=== PATIENT | female | born 1995 | race Caucasian/White ===

== ENCOUNTER 2016-12-15 08:11 | Emergency (ER) | payer OTHER ==
[2016-12-15 08:30] VITALS: BP 117/59
--- NOTE | 2016-12-15 08:50 | UC ---
Complaint Female HPI - HPI Summary HPI Summary: DYSURIA X 2 DAYS + FREQUENCY , URGENCY NO FEVER, NO CHILLS, NO FLANK PAIN - History Of Current Complaint Chief Complaint: UCGU Stated Complaint: URINARY COMPLAINT Time Seen by Provider: 12/15/16 08:19 Hx Obtained From: Patient Hx Last Menstrual Period: 11/29/16 ?: No Onset/Duration: Gradual Onset, Lasting Days - 2, Still Present Timing: Constant Severity Initially: Moderate Severity Currently: Moderate Character: Burning Aggravating Factor(s): Nothing Alleviating Factor(s): Nothing Associated Signs And Symptoms: Negative: Fever, Back Pain, Vaginal Bleeding/ Discharge, Vaginal Discharge, Nausea, Vomiting(# Of Episodes =), Genital Swelling, Genital Blisters, Retained Foregin Body (Specify) Related Hx: Similar Episode/Dx as: - UTI - Allergies/Home Medications Allergies/Adverse Reactions: Allergies Allergy/AdvReac Type Severity Reaction Status Date / Time No Known Allergies Allergy Verified 12/15/16 08:30 PMH/Surg Hx/FS Hx/Imm Hx Previously Healthy: Yes - Surgical History Surgical History: Yes Surgery Procedure, Year, and Place: wisdom teeth - Family History Known Family History: Negative: Renal Disease - Social History Alcohol Use: Occasionally Substance Use Type: None Smoking Status (MU): Never Smoked Tobacco - Immunization History Most Recent Influenza Vaccination: none Review of Systems Constitutional: Negative Skin: Negative Eyes: Negative ENT: Negative Respiratory: Negative Genitourinary: Dysuria, Frequency All Other Systems Reviewed And Are Negative: Yes Physical Exam Triage Information Reviewed: Yes Appearance: Well-Appearing, No Pain Distress, Well-Nourished Vital Signs: Initial Vital Signs Temp 98.6 F 12/15/16 08:26 Pulse 69 12/15/16 08:26 Resp 16 12/15/16 08:26 BP 117/59 12/15/16 08:26 Pulse Ox 100 12/15/16 08:26 Vital Signs Reviewed: Yes Eye Exam: Normal Eyes: Positive: Conjunctiva Clear ENT: Positive: Normal ENT inspection, Hearing grossly normal, Pharynx normal Neck: Positive: Supple, Nontender, No Lymphadenopathy Respiratory: Positive: Chest non-tender, Lungs clear, Normal breath sounds Cardiovascular: Positive: RRR, No Murmur, Pulses Normal Abdominal Exam: Normal Abdomen Description: Positive: Nontender, Soft. Negative: CVA Tenderness (R), CVA Tenderness (L), Distended, Guarding Bowel Sounds: Positive: Present Complaint Female Dx - Differential Dx/Diagnosis Provider Diagnoses: UTI Discharge - Discharge Plan Condition: Stable Disposition: HOME Prescriptions: Sulfamethox/Trimethoprim DS* [Bactrim DS 800/160 TAB*] 1 tab PO BID #14 tab Patient Education Materials: Urinary Tract Infection in Women (ED) Referrals: David Horton MD [Primary Care Provider] - 7 Days
== END 2016-12-15 08:57 | disposition home or self-care (01) ==
LOC: UCCORT 08:11
DX: N39.0 Urinary tract infection, site not specified (principal)
CPT/HCPCS: 81003; 87086; 99212; G0463

== ENCOUNTER 2017-03-10 08:10 | Emergency (ER) | payer OTHER ==
[2017-03-10 08:22] VITALS: BP 123/66
--- NOTE | 2017-03-10 08:29 | UC ---
Eye Complaint HPI - HPI Summary HPI Summary: The patient comes in today for: 1. "I think I have pink eye": Onset: 12 hours ago. Palliative/provocative: Nothing makes her symptoms better or worse. Quality: Itchy Region: Left eye Severity: 5/10 Time: Constant. Associated symptoms: Discharge: Green/yellow material only when she woke up. Vision: No change. * - History of Current Complaint Chief Complaint: UCEye Stated Complaint: EYE COMPLAINT Time Seen by Provider: 03/10/17 08:21 Hx Obtained From: Patient Hx Last Menstrual Period: ~02/17/17 - Allergies/Home Medications Allergies/Adverse Reactions: Allergies Allergy/AdvReac Type Severity Reaction Status Date / Time No Known Allergies Allergy Verified 03/10/17 08:15 Home Medications: Home Medications Control Pill 1 tab PO DAILY 03/10/17 [History] PMH/Surg Hx/FS Hx/Imm Hx Previously Healthy: No - Family planning/BCP - Surgical History Surgical History: Yes Surgery Procedure, Year, and Place: wisdom teeth - Family History Known Family History: Positive: Hypertension, Diabetes Negative: Renal Disease - Social History Occupation: Employed Full-time Alcohol Use: Rare Substance Use Type: None Smoking Status (MU): Never Smoked Tobacco - Immunization History Most Recent Influenza Vaccination: Not the 2015/2016 Season Review of Systems Constitutional: Negative Skin: Negative Eyes: Drainage ENT: Negative, Other - Itchy nose and clear rhinitis Respiratory: Negative Cardiovascular: Negative Gastrointestinal: Negative Genitourinary: Negative All Other Systems Reviewed And Are Negative: Yes Physical Exam Triage Information Reviewed: Yes Appearance: Well-Appearing, No Pain Distress, Well-Nourished Vital Signs: Initial Vital Signs Temp 98.7 F 03/10/17 08:14 Pulse 90 03/10/17 08:14 Resp 16 03/10/17 08:14 BP 123/66 03/10/17 08:14 Pulse Ox 100 03/10/17 08:14 Vital Signs Reviewed: Yes Eyes: Positive: Conjunctiva Clear - On the right, Conjunctiva Inflamed - On the left with yellow crusting around the eye lashes.. Negative: Discharge ENT: Positive: Hearing grossly normal. Negative: Pharyngeal erythema, Nasal congestion, TM bulging, TM dull, TM red, Tonsillar swelling, Tonsillar exudate Dental: Negative: Gross Decay/Caries @, Dental Fracture @ Neck: Positive: Supple, Nontender, No Lymphadenopathy. Negative: Nuchal Rigidity Respiratory: Positive: Lungs clear, No respiratory distress, No accessory muscle use. Negative: Crackles, Wheezing Cardiovascular: Positive: RRR, No Murmur Abdomen Description: Positive: Nontender, No Organomegaly, Soft. Negative: Distended, Guarding Musculoskeletal: Positive: Strength Intact, ROM Intact Neurological: Positive: Alert, Muscle Tone Normal Psychological: Positive: Age Appropriate Behavior, Consolable Skin: Negative: rashes, breakdown Eye Complaint Course/Dx - Course Course Of Treatment: Patient was told that I think she has both allergic conjunctivitis and left bacterial conjunctivitis. She was encouraged to use [id number] antihistamine eye drops. - Differential Dx/Diagnosis Differential Diagnosis/HQI/PQRI: Conjunctivitis, Keratitis Provider Diagnoses: Left bacterial conjunctivitis. Allergic bilateral conjunctivitis Discharge - Discharge Plan Condition: Stable Disposition: HOME Patient Education Materials: Conjunctivitis (ED) Referrals: No Primary Care Phys,NOPCP [Primary Care Provider] - 1 Week (Please see your primary care provider in about a week. If you don't have a primary care provider, please reference the included sheet of local provider. If you get worse, please be seen sooner.)
== END 2017-03-10 08:45 | disposition home or self-care (01) ==
LOC: UCCORT 08:10
DX: H10.89 Other conjunctivitis (principal); H10.13 Acute atopic conjunctivitis, bilateral
CPT/HCPCS: 99212; G0463

== ENCOUNTER 2018-09-15 14:46 | Emergency (ER) | payer OTHER ==
[2018-09-15 15:01] VITALS: BP 142/86
--- NOTE | 2018-09-15 15:36 | UC ---
Complaint Female HPI - HPI Summary HPI Summary: PATIENT COMPLAINS OF ABOUT 10 DAYS OF DYSURIA, URINARY FREQUENCY AND URGENCY. STATES SHE HAS A HISTORY OF FREQUENT/RECURRENT UTI EVER SINCE SHE WAS CHILD. HAS NEVER HAD SPECIALIST EVALUATION. NO FEVER OR NAUSEA/VOMITING. DOES HAVE SOME MILD LOW BACK PAIN. REPORTS SHE IS SEXUALLY ACTIVE WITH 1 MALE PARTNER FOR THE PAST 2-3 MONTHS. SHE USES BARRIER METHODS OF CONTRACEPTION INTERMITTENTLY. IS ALSO REQUESTING STD TESTING. SHE DENIES ANY ABDOMINAL PAIN. STATES SHE HAS SOME VAGINAL DISCHARGE DESCRIBED SOMETIMES WHITE AND SOMETIMES GREENISH/YELLOW. NO FOUL ODOR OR VAGINAL IRRITATION. - History Of Current Complaint Chief Complaint: UCGU Stated Complaint: URINARY COMPLAINT Time Seen by Provider: 09/15/18 15:07 Hx Obtained From: Patient Hx Last Menstrual Period: 08/27/18 Onset/Duration: Gradual Onset, Lasting Days, Still Present Timing: Constant Severity Initially: Mild Severity Currently: Mild Pain Intensity: 2 Pain Scale Used: 0-10 Numeric Character: Burning Aggravating Factor(s): Urination Alleviating Factor(s): Nothing Associated Signs And Symptoms: Positive: Back Pain, Vaginal Discharge. Negative : Fever, Nausea, Vomiting(# Of Episodes =) - Allergies/Home Medications Allergies/Adverse Reactions: Allergies Allergy/AdvReac Type Severity Reaction Status Date / Time No Known Allergies Allergy Verified 09/15/18 14:56 PMH/Surg Hx/FS Hx/Imm Hx Previously Healthy: Yes - Surgical History Surgical History: Yes Surgery Procedure, Year, and Place: wisdom teeth - Family History Known Family History: Positive: Hypertension, Diabetes Negative: Renal Disease - Social History Alcohol Use: Rare Substance Use Type: None Smoking Status (MU): Never Smoked Tobacco - Immunization History Most Recent Influenza Vaccination: Not the 2015/2016 Season Review of Systems All Other Systems Reviewed And Are Negative: Yes Constitutional: Positive: Negative Respiratory: Positive: Negative Cardiovascular: Positive: Negative Gastrointestinal: Positive: Negative Genitourinary: Positive: Dysuria, Frequency, Urgency Physical Exam Triage Information Reviewed: Yes Appearance: Well-Appearing, No Pain Distress, Well-Nourished Vital Signs: Initial Vital Signs Temp 98.5 F 09/15/18 14:57 Pulse 81 09/15/18 14:57 Resp 14 09/15/18 14:57 BP 142/86 09/15/18 14:57 Pulse Ox 100 12/15/18 14:57 Laboratory Tests 09/15/18 15:14 POC Urine Color Yellow POC Urine Clarity Clear POC Urine pH 7.0 POC Ur Specif Gordon 1.020 POC Urine Protein Negative POC Ur Glucose (UA) Negative POC Urine Ketones Negative POC Urine Blood Negative POC Urine Nitrite Negative POC Urine Bilirubin Negative POC Urine Urobilinogen 0.2 POC U Leukocyte Esteras Trace A Vital Signs Reviewed: Yes Eyes: Positive: Conjunctiva Clear ENT: Positive: Hearing grossly normal Neck: Positive: Supple Respiratory: Positive: No respiratory distress, No accessory muscle use Cardiovascular: Positive: Pulses Normal Abdomen Description: Positive: Soft. Negative: Nontender, CVA Tenderness (R), CVA Tenderness (L), Distended, Guarding Musculoskeletal: Positive: No Edema Neurological: Positive: Alert Psychological: Positive: Age Appropriate Behavior Skin: Negative: Rashes Complaint Female Dx - Course Course Of Treatment: WILL TREAT PATIENT FOR UTI DESPITE NONSPECIFIC UA GIVEN HER SYMPTOMS AND HISTORY OF RECURRENT UTI. I STRONGLY ENCOURAGED PATIENT TO FOLLOW-UP WITH A UROLOGIST FOR FURTHER EVALUATION. SHE IS ALSO COMPLAINING OF SOME INTERMITTENT VAGINAL DISCHARGE THAT IS GREENISH/YELLOW. SHE DENIES ANY IRRITATION/DISCOMFORT OR FOUL ODOR BUT DOES HAVE HISTORY OF UNPROTECTED SEX IN THE PAST COUPLE OF MONTHS. WILL TEST FOR ALL STDS AND ALSO SWAB FOR VAGINITIS. PATIENT ENCOURAGED TO FIND A PCP. - Differential Dx/Diagnosis Provider Diagnosis: Dysuria, Screen for STD (sexually transmitted disease) Discharge - Sign-Out/Discharge Documenting (check all that apply): Patient Departure All imaging exams completed and their final reports reviewed: No Studies - Discharge Plan Condition: Stable Disposition: HOME Prescriptions: Sulfamethox/Trimethoprim DS* [Bactrim DS 800/160 TAB*] 1 tab PO BID #10 tab Patient Education Materials: Sexually Transmitted Diseases (ED), Dysuria (ED) Referrals: No Primary Care Phys,NOPCP [Primary Care Provider] - Additional Instructions: YOUR URINE DOES NOT CLEARLY SHOW A UTI BUT GIVEN YOUR SYMPTOMS WILL COVER WITH ANTIBIOTICS FOR 3 DAYS. YOUR URINE WILL BE SENT FOR TESTING. I RECOMMEND YOU FOLLOW-UP WITH A UROLOGIST FOR FURTHER EVALUATION OF YOUR RECURRENT/FREQUENT UTI SYMPTOMS. STD TESTING ALSO DONE TODAY - HIV, SYPHILIS, GONORRHEA, CHLAMYDIA, VAGINITIS. WE WILL CALL YOU WITH ANY ABNORMAL RESULTS. BE SURE TO PRACTICE SAFER SEX - USE A BARRIER METHOD OF CONTRACEPTION EVERY TIME. LIST OF PCPs AND SPECIALISTS PROVIDED FOR YOUR REFERENCE. - Billing Disposition and Condition Condition: STABLE Disposition: Home
== END 2018-09-15 15:54 | disposition home or self-care (01) ==
LOC: UCCORT 14:46
DX: R30.0 Dysuria (principal); Z11.3 Encounter for screening for infections with a predominantly sexual mode of transmission
CPT/HCPCS: 36415; 81003; 86592; 86703; 87086; 87480; 87491; 87510; 87591; 87660; 87798; 99212; G0463

== ENCOUNTER 2018-11-04 07:01 | Emergency (ER) | payer OTHER ==
[2018-11-04 07:19] VITALS: BP 126/76
--- NOTE | 2018-11-04 07:40 | UC ---
Complaint Female HPI - HPI Summary HPI Summary: dysuria starting this morning without vomiting, flank pain, fever. She gets about 4 uti per year since childhood. No prior workup. She was given name of urologist to f/u with last visit but did not go yet. - History Of Current Complaint Chief Complaint: UCGU Stated Complaint: URINARY Time Seen by Provider: 11/04/18 07:30 Hx Obtained From: Patient Hx Last Menstrual Period: 10/21/18 Onset/Duration: Gradual Onset, Lasting Hours Timing: Constant Severity Initially: Moderate Severity Currently: Moderate Pain Intensity: 0 Character: Burning Aggravating Factor(s): Urination Alleviating Factor(s): Nothing Associated Signs And Symptoms: Negative: Fever, Back Pain, Vaginal Bleeding/ Discharge, Vaginal Discharge, Nausea, Vomiting(# Of Episodes =), Genital Swelling, Genital Blisters Related Hx: Similar Episode/Dx as: - prior uti. - Allergies/Home Medications Allergies/Adverse Reactions: Allergies Allergy/AdvReac Type Severity Reaction Status Date / Time No Known Allergies Allergy Verified 11/04/18 07:16 PMH/Surg Hx/FS Hx/Imm Hx Previously Healthy: No - uti 4x/yr. - Surgical History Surgical History: Yes Surgery Procedure, Year, and Place: wisdom teeth - Family History Known Family History: Positive: Hypertension, Diabetes Negative: Renal Disease - Social History Alcohol Use: Occasionally Substance Use Type: None Smoking Status (MU): Never Smoked Tobacco - Immunization History Most Recent Influenza Vaccination: Not the 2015/2016 Season Review of Systems All Other Systems Reviewed And Are Negative: Yes Genitourinary: Positive: Dysuria Physical Exam Triage Information Reviewed: Yes Appearance: Well-Appearing, No Pain Distress, Well-Nourished Vital Signs: Initial Vital Signs Temp 97.4 F 11/04/18 07:16 Pulse 77 11/04/18 07:16 Resp 16 11/04/18 07:16 BP 126/76 11/04/18 07:16 Pulse Ox 100 11/04/18 07:16 Vital Signs Reviewed: Yes Eyes: Positive: Conjunctiva Clear ENT: Positive: Normal ENT inspection Neck: Positive: Supple, Nontender. Negative: No Lymphadenopathy Respiratory: Positive: Lungs clear, Normal breath sounds, No respiratory distress, No accessory muscle use Cardiovascular: Positive: No Murmur Abdomen Description: Positive: Nontender, No Organomegaly. Negative: CVA Tenderness (R), CVA Tenderness (L) Musculoskeletal: Positive: Strength Intact, ROM Intact, No Edema Neurological: Positive: Alert, Muscle Tone Normal. Negative: Fatigued Psychological: Positive: Age Appropriate Behavior Skin: Negative: Rashes Complaint Female Dx - Differential Dx/Diagnosis Provider Diagnosis: UTI (urinary tract infection) Discharge - Sign-Out/Discharge Documenting (check all that apply): Patient Departure All imaging exams completed and their final reports reviewed: No Studies - Discharge Plan Condition: Good Disposition: HOME Prescriptions: Nitrofurantoin Monohyd/M-Cryst [Macrobid 100 mg Capsule] 100 mg PO BID #14 cap Patient Education Materials: Urinary Tract Infection in Women (DC) Referrals: No Primary Care Phys,NOPCP [Primary Care Provider] - Zackery Marcano MD [Medical Doctor] - - Billing Disposition and Condition Condition: GOOD Disposition: Home
== END 2018-11-04 07:41 | disposition home or self-care (01) ==
LOC: UCCORT 07:01
DX: N39.0 Urinary tract infection, site not specified (principal); R11.0 Nausea
CPT/HCPCS: 81003; 87077; 87086; 87186; 99212; G0463

== ENCOUNTER 2019-04-09 09:32 | Emergency (ER) | payer OTHER ==
[2019-04-09 09:48] VITALS: BP 114/69
--- NOTE | 2019-04-09 10:04 | UC ---
Abdominal Pain Female HPI - HPI Summary HPI Summary: 23 yo female presents with diarrhea since yesterday. She tells me that yesterday she developed some generalized abdominal cramping and has had 10-20 instances of watery diarrhea since midday yesterday. She recalls eating meat that was frozen since January and thinks she may have food poisoning. She has had no abdominal surgeries. No recent antibiotics. She is able to drink fluids and has had some toast this morning. She denies fever, chills, n/v, dysuria. - History of Current Complaint Chief Complaint: UCAbdominalPain Stated Complaint: ABDOMINAL PAIN Time Seen by Provider: 04/09/19 10:04 Hx Obtained From: Patient Hx Last Menstrual Period: 04/06/18 Onset/Duration: Sudden Onset Severity Initially: Mild Severity Currently: Mild Pain Intensity: 2 Pain Scale Used: 0-10 Numeric Allergies/Adverse Reactions: Allergies Allergy/AdvReac Type Severity Reaction Status Date / Time No Known Allergies Allergy Verified 04/09/19 09:48 PMH/Surg Hx/FS Hx/Imm Hx - Additional Past Medical History Additional PMH: None - Surgical History Surgical History: Yes Surgery Procedure, Year, and Place: wisdom teeth - Family History Known Family History: Positive: Hypertension, Diabetes Negative: Renal Disease - Social History Occupation: Employed Part-time Lives: With Family Alcohol Use: Occasionally Substance Use Type: None Smoking Status (MU): Never Smoked Tobacco - Immunization History Most Recent Influenza Vaccination: Not the 2016/2016 Season Review of Systems All Other Systems Reviewed And Are Negative: Yes Constitutional: Positive: Negative Skin: Positive: Negative Respiratory: Positive: Negative Cardiovascular: Positive: Negative Gastrointestinal: Positive: Abdominal Pain, Diarrhea Genitourinary: Positive: Negative Neurovascular: Positive: Negative Neurological: Positive: Negative Psychological: Positive: Negative Physical Exam - Summary Physical Exam Summary: GENERAL: NAD. WDWN. No pain distress. SKIN: No rashes, sores, lesions, or open wounds. NECK: Supple. Nontender. No lymphadenopathy. CHEST: CTAB. No r/r/w. No accessory muscle use. Breathing comfortably and in no distress. CV: RRR. Without m/r/g. Pulses intact. Cap refill <2seconds ABDOMEN: Generalized mild TTP. Soft. No distention or guarding. No CVA tenderness. Bowel sounds present. No mcburnery point tenderness. NEURO: Alert. PSYCH: Age appropriate behavior. Triage Information Reviewed: Yes Vital Signs: Initial Vital Signs Temp 98.3 F 04/09/19 09:42 Pulse 73 04/09/19 09:42 Resp 16 04/09/19 09:42 BP 114/69 04/09/19 09:42 Pulse Ox 100 04/09/19 09:42 Vital Signs Reviewed: Yes Abd Pain Female Course/Dx - Course Course Of Treatment: Suspect viral diarrhea. She is able to tolerate po well and has no signs of appendicitis or underlying infection at this point. We discussed obtaining stool cultures, but pt prefers to wait to see if her symptoms improve within the next 2 days and, if not, will complete the stool cultures. Advised to drink plenty of fluids and adhere to a BRAT diet and advance diet as tolerated. - Differential Dx/Diagnosis Provider Diagnosis: Diarrhea Discharge - Sign-Out/Discharge Documenting (check all that apply): Patient Departure All imaging exams completed and their final reports reviewed: No Studies - Discharge Plan Condition: Stable Disposition: HOME Patient Education Materials: Acute Diarrhea (ED) Forms: *Work Release Referrals: No Primary Care Phys,NOPCP [Primary Care Provider] - Additional Instructions: If you develop a fever, shortness of breath, chest pain, new or worsening symptoms - please call your PCP or go to the ED immediately. 1) Continue to drink plenty of clear fluids and adhere to a BRAT diet of bananas , rice, applesauce, and toast. 2) If your diarrhea does not resolve in 2-3 days, please be rechecked - Billing Disposition and Condition Condition: STABLE Disposition: Home
== END 2019-04-09 10:18 | disposition home or self-care (01) ==
LOC: UCCORT 09:32
DX: R19.7 Diarrhea, unspecified (principal); R10.84 Generalized abdominal pain
CPT/HCPCS: 99211; G0463

== ENCOUNTER 2019-11-07 10:34 | Emergency (ER) | payer OTHER ==
[2019-11-07 11:26] VITALS: BP 117/68
--- NOTE | 2019-11-07 12:03 | UC ---
Throat Pain/Nasal Abdelrahman HPI - HPI Summary HPI Summary: 24 y/o female presents to the urgent care c/o sore throat, low grade fever, chills, fatigue and body aches for the past 2 days. Fever of 101F yesterday, but has not taken anything to alleviate symptoms. She is concerned w/ influenza since many co-worker have cold symptoms. Pain w/ swallowing is 5/10. She has been drinking fluids and eating well. Pt denies SOB, wheezing, dizziness , chest pain, abdominal pain, N/V/D. - History of Current Complaint Chief Complaint: UCRespiratory Stated Complaint: ST Time Seen by Provider: 11/07/19 11:59 Hx Obtained From: Patient Hx Last Menstrual Period: 10/13/2019 Onset/Duration: Gradual Onset, Lasting Days - 2 days, Still Present, Worse Since - today w/ chills and low grade fever and body aches Severity: Moderate Pain Intensity: 5 - sore throat Pain Scale Used: 0-10 Numeric Cough: Nonproductive Associated Signs & Symptoms: Positive: Nasal Discharge - clear, Fever. Negative : Dysphagia, Wheezing, Sinus Discomfort, Vomiting - Epiglottits Risk Factors Epiglottis Risk Factors: Negative - Allergies/Home Medications Allergies/Adverse Reactions: Allergies Allergy/AdvReac Type Severity Reaction Status Date / Time No Known Allergies Allergy Verified 11/07/19 11:22 PMH/Surg Hx/FS Hx/Imm Hx Previously Healthy: Yes - Pt denies PMHX - Surgical History Surgical History: Yes Surgery Procedure, Year, and Place: wisdom teeth - Family History Known Family History: Positive: Hypertension, Diabetes Negative: Renal Disease - Social History Alcohol Use: Occasionally Substance Use Type: None Smoking Status (MU): Never Smoked Tobacco - Immunization History Most Recent Influenza Vaccination: Not the 2016/2016 Season Review of Systems All Other Systems Reviewed And Are Negative: Yes Constitutional: Positive: Fever, Chills, Fatigue Eyes: Positive: Negative ENT: Positive: Sore Throat, Nasal Discharge - clear Respiratory: Positive: Cough Cardiovascular: Positive: Negative Gastrointestinal: Positive: Negative Genitourinary: Positive: Negative Motor: Positive: Negative Neurovascular: Positive: Negative Musculoskeletal: Positive: Myalgia Neurological: Positive: Headache Psychological: Positive: Negative Is Patient Immunocompromised?: No Physical Exam - Summary Physical Exam Summary: VITAL SIGNS: Reviewed. GENERAL: Patient is a well developed and nourished female who is sitting comfortably in the examining table. Patient is not in any acute respiratory distress. HEAD AND FACE: No signs of trauma. No ecchymosis, hematomas or skull depressions. No sinus tenderness. EYES: PERRLA, EOMI x 2, No injected conjunctiva, no nystagmus. No photophobia. EARS: Hearing grossly intact. Ear canals and tympanic membranes are within normal limits. MOUTH: Positive pharynx with mild erythema, no exudates, No B/L tonsillar enlargement , no exudate. Uvula in midline. edematous nasal mucosa w/ clear nasal discharge, clear PND NECK: Supple, trachea is midline, Positive anterior cervical lymphadenopathy, no JVD, no carotid bruit, no c-spine tenderness, neck with full ROM. No meningeal signs, no Kernig's or brudzinskis signs. CHEST: Symmetric, no tenderness at palpation LUNGS: Clear to auscultation bilaterally. No wheezing or crackles. CVS: Regular rate and rhythm, S1 and S2 present, no murmurs or gallops appreciated. ABDOMEN: Soft, non-tender. No signs of distention. No rebound no guarding, and no masses palpated. Bowel sounds are normal. EXTREMITIES: FROM in all major joints, no edema, no cyanosis or clubbing. NEURO: Alert and oriented x 3. No acute neurological deficits. Pt follows commands. SKIN: Dry and warm Triage Information Reviewed: Yes Vital Signs: Initial Vital Signs Temp 99 F 11/07/19 11:20 Pulse 67 11/07/19 11:20 Resp 16 11/07/19 11:20 BP 117/68 11/07/19 11:20 Pulse Ox 100 11/07/19 11:20 Throat Pain/Nasal Course/Dx - Course Course Of Treatment: 24 y/o female presents to the urgent care c/o sore throat, low grade fever, chills, fatigue and body aches for the past 2 days. Fever of 101F yesterday, but has not taken anything to alleviate symptoms. She is concerned w/ influenza since many co-worker have cold symptoms. Pain w/ swallowing is 5/10. She has been drinking fluids and eating well. Pt denies SOB, wheezing, dizziness , chest pain, abdominal pain, N/V/D. Hx obtained. Pt is hemodynamically stable, A&OX3, febrile w/ pharyngitis on examination. Rapid strep: negative, Rapid influenza A&B: negative. Pt w/ Viral pharyngitis. Pt advised to take ibuprofen PO to alleviates symptoms of pain and swelling. Advised on hand washing to avoid spreading. Pt advised to rest, eat well and avoid strenuous exercise. If symptoms do not improve or worsen advised to return to the urgent care or f/u with her PCP for further evaluation and treatment. Pt understood and agreed - Differential Dx/Diagnosis Differential Diagnosis/HQI/PQRI: Influenza, Laryngitis, Otitis Media, Pharyngitis, Tonsillitis, URI Provider Diagnosis: Acute viral pharyngitis Discharge ED - Sign-Out/Discharge Documenting (check all that apply): Patient Departure - D/c home All imaging exams completed and their final reports reviewed: No Studies - Discharge Plan Condition: Stable Disposition: HOME Patient Education Materials: Pharyngitis (ED) Forms: *Work Release Referrals: Shanice Byrd NP [Primary Care Provider] - 2 Days Additional Instructions: 1-Please take ibuprofen PO q6-8hrs prn as instructed after meals to alleviate pain and swelling. Increase fluid intake, eat well, rest and avoid strenuous exercise 2-If symptoms do not improve or worsen please return to the urgent care or f/u with your PCP in 2-3 days for further evaluation and treatment. - Billing Disposition and Condition Condition: STABLE Disposition: Home - Attestation Statements Provider Attestation: I was available for consult. This patient was seen by the DANNY. The patient was not presented to, seen by, or examined by me. -Dc
[2019-11-07 12:11] LABS: Influenza A Molecular Negative (Negative); Influenza B Molecular Negative (Negative)
== END 2019-11-07 12:22 | disposition home or self-care (01) ==
LOC: UCCORT 10:34
DX: J02.9 Acute pharyngitis, unspecified (principal); R53.83 Other fatigue; R09.81 Nasal congestion
CPT/HCPCS: 87651; 99211; G0463